=== PATIENT | female | born 1990 | race Caucasian/White ===

== ENCOUNTER 2019-03-18 23:09 | Emergency (ER) | payer MEDICAID ==
[~2019-03-18] VITALS: Ht 160 cm; Wt 110.2 kg
[2019-03-19 00:52] VITALS: BP 122/65
== END 2019-03-19 00:45 | disposition home or self-care (01) ==
LOC: ED 23:09
DX: K42.9 Umbilical hernia without obstruction or gangrene (principal)
CPT/HCPCS: J1885